=== PATIENT | male | born 1935 | race Caucasian/White ===

== ENCOUNTER 2018-07-11 05:50 | Day surgery (SDC) | payer MEDICARE, MEDICAID ==
[2018-07-04 11:10] LABS: BASOPHILS % (AUTO) 0.5 % (0-1); EOSINOPHILS # (AUTO) 0.1 X10'3 (0-0.9); EOSINOPHILS % (AUTO) 2.1 % (0-6); LYMPHOCYTES # (AUTO) 0.7 X10'3 (1.1-4.8); LYMPHOCYTES % (AUTO) 14.1 % (21-51); MEAN CORPUSCULAR HEMOGLOBIN 29.1 PG (27.0-31.0); MEAN CORPUSCULAR HGB CONC 33.3 % (33.0-36.5); MEAN CORPUSCULAR VOLUME 87.6 FL (78-98); MEAN PLATELET VOLUME 6.9 FL (7.4-10.4); MONOCYTES # (AUTO) 0.4 X10'3 (0-0.9); MONOCYTES % (AUTO) 7.9 % (2-12); NEUTROPHILS # (AUTO) 3.9 X10'3 (1.8-7.7); NEUTROPHILS % (AUTO) 75.4 % (42-75); PRE OP HEMATOCRIT 41.6 % (42.0-52.0); PRE OP HEMOGLOBIN 13.9 g/dL (14.0-17.9); PRE OP PLATELET COUNT 226 X10'3 (140-440); RED BLOOD COUNT 4.75 X10'6 (4.70-6.10); RED CELL DISTRIBUTION WIDTH 13.1 % (11.5-14.5)
[2018-07-04 11:23] LABS: ALBUMIN 3.5 G/DL (3.4-5.0); ALBUMIN/GLOBULIN RATIO 1.1 (1.1-1.5); ALKALINE PHOSPHATASE 83 IU/L (46-116); BLOOD UREA NITROGEN 26 MG/DL (7-18); BUN/CREATININE RATIO 22.4 (5.4-32.0); CALCIUM 8.9 MG/DL (8.5-10.1); CHLORIDE 107 MMOL/L (99-107); CREATININE 1.16 MG/DL (0.60-1.10); PRE OP ALT 18 U/L (30-65); PRE OP ANION GAP 8 (8-16); PRE OP AST 17 U/L (10-37); PRE OP BILIRUB, TOTAL 0.2 MG/DL (0.0-1.0); PRE OP GLUCOSE 91 MG/DL (70-104); PRE OP POTASSIUM 4.4 MMOL/L (3.4-5.1); PRE OP SODIUM 144 MMOL/L (135-145); TOTAL PROTEIN 6.8 G/DL (6.4-8.2); eGFR 60 ML/MIN
[~2018-07-11] VITALS: Ht 188 cm; Wt 91.0 kg
[~2018-07-11 05:50] MED LIST: BICA50TA7 PO; CRAN1CAP3 PO; FISH12002 PO; GLUC100017 PO; LISI40TA4 PO; MULT1TAB74 PO; VITA150T PO; cefazolin/dext.iso 2gm/100 ML IV ONE; famotidine 20mg tablet PO ONE; ringers solution, lacted 1,000 ML IV SCH
[2018-07-11] MEDS ORDERED: LIDOcaine 1% (10mg/ml) 2ml vial ONE (06:11)
[2018-07-11] MEDS ORDERED: BUPIVAcaine/PF 2.5mg/ml (0.25%) 10ml vial ONE (06:44)
[2018-07-11 07:01] VITALS: BP 170/70
[2018-07-11 07:09] VITALS: BP 170/71
[2018-07-11] MEDS ORDERED: LIDOcaine 0.5% (5mg/ml) 50ml vial ONE (07:37)
[2018-07-11] MEDS ORDERED: fentaNYL/PF 50MCG/1 ML 2ML syringe ONE (07:45)
[2018-07-11] MEDS ORDERED: midazolam 2 mg/2 ml injection ONE (07:46)
[2018-07-11] MEDS ORDERED: ringers solution, lacted 1,000 ML IV SCH (08:08)
[2018-07-11] MEDS ORDERED: meperidine/PF 25mg/ml syringe IV PRN ×3 (08:10)
[2018-07-11] MEDS ORDERED: morphine 4 MG/ML inj SYRINge IV PRN ×2 (08:10)
[2018-07-11] MEDS ORDERED: proCHLORperazine 10 MG/2 ml inj IV PRN (08:10)
[2018-07-11] MEDS ORDERED: ondansetron/PF 4mg/2ml inj IV PRN (08:10)
[2018-07-11 08:40] VITALS: BP 177/109
[2018-07-11 08:50] VITALS: BP 157/92
[2018-07-11 09:00] VITALS: BP 164/99
[2018-07-11 09:10] VITALS: BP 164/103
== END 2018-07-11 09:15 | disposition home or self-care (01) ==
LOC: PAS 05:50
PROVIDERS: ATTEND Orthopaedic Surgery Hand Surgery
DX: G56.02 Carpal tunnel syndrome, left upper limb (principal); M70.22 Olecranon bursitis, left elbow; I10 Essential (primary) hypertension; Z90.5 Acquired absence of kidney; Z79.01 Long term (current) use of anticoagulants; Z85.46 Personal history of malignant neoplasm of prostate; Z85.51 Personal history of malignant neoplasm of bladder; Z92.21 Personal history of antineoplastic chemotherapy; Z92.3 Personal history of irradiation; Z79.899 Other long term (current) drug therapy; Z98.890 Other specified postprocedural states
CPT/HCPCS: 24105; 36415; 64721; 71046; 80053; 85025; 85610; 85730; 93005; A6222; A6449; J0690; J2001; J2250; J3010; J3490; J7120

== ENCOUNTER 2018-08-08 07:59 | Day surgery (SDC) | payer MEDICARE, MEDICAID ==
[~2018-08-08] VITALS: Ht 188 cm; Wt 88.1 kg
[~2018-08-08 07:59] MED LIST changes: +ACET-2119 PO; +POTA10TA19 PO
[2018-08-08 09:18] LABS: BASOPHILS % (AUTO) 0.4 % (0-1); EOSINOPHILS # (AUTO) 0.2 X10'3 (0-0.9); EOSINOPHILS % (AUTO) 4.3 % (0-6); LYMPHOCYTES # (AUTO) 0.9 X10'3 (1.1-4.8); LYMPHOCYTES % (AUTO) 16.6 % (21-51); MEAN CORPUSCULAR HGB CONC 33.3 % (33.0-36.5); MEAN CORPUSCULAR VOLUME 87.1 FL (78-98); MEAN PLATELET VOLUME 6.7 FL (7.4-10.4); MONOCYTES # (AUTO) 0.4 X10'3 (0-0.9); MONOCYTES % (AUTO) 7.5 % (2-12); NEUTROPHILS # (AUTO) 3.8 X10'3 (1.8-7.7); NEUTROPHILS % (AUTO) 71.2 % (42-75); PRE OP HEMATOCRIT 42.3 % (42.0-52.0); PRE OP HEMOGLOBIN 14.1 g/dL (14.0-17.9); PRE OP PLATELET COUNT 224 X10'3 (140-440); RED BLOOD COUNT 4.86 X10'6 (4.70-6.10); RED CELL DISTRIBUTION WIDTH 14.5 % (11.5-14.5)
[2018-08-08] MEDS ORDERED: LIDOcaine 1% (10mg/ml) 2ml vial ONE (09:29)
[2018-08-08 09:34] LABS: ALBUMIN 3.5 G/DL (3.4-5.0); ALKALINE PHOSPHATASE 73 IU/L (46-116); BLOOD UREA NITROGEN 26 MG/DL (7-18); BUN/CREATININE RATIO 19.1 (5.4-32.0); CALCIUM 9.2 MG/DL (8.5-10.1); CHLORIDE 107 MMOL/L (99-107); CREATININE 1.36 MG/DL (0.60-1.10); PRE OP ALT 21 U/L (30-65); PRE OP ANION GAP 8 (8-16); PRE OP BILIRUB, TOTAL 0.5 MG/DL (0.0-1.0); PRE OP GLUCOSE 96 MG/DL (70-104); PRE OP SODIUM 142 MMOL/L (135-145); TOTAL CARBON DIOXIDE 27.1 MMOL/L (24-32); TOTAL PROTEIN 6.9 G/DL (6.4-8.2); eGFR 50 ML/MIN
[2018-08-08 09:35] LABS: PRE OP AST 26 U/L (10-37); PRE OP POTASSIUM 4.6 MMOL/L (3.4-5.1)
[2018-08-08] MEDS ORDERED: BUPIVAcaine/PF 2.5mg/ml (0.25%) 10ml vial ONE (09:53)
[2018-08-08] MEDS ORDERED: LIDOcaine 0.5% (5mg/ml) 50ml vial ONE (10:09)
[2018-08-08 10:29] VITALS: BP 171/93
[2018-08-08 10:32] VITALS: BP 171/93
[2018-08-08] MEDS ORDERED: fentaNYL/PF 50MCG/1 ML 2ML syringe ONE (10:34)
[2018-08-08] MEDS ORDERED: midazolam 2 mg/2 ml injection ONE (10:34)
[2018-08-08] MEDS ORDERED: ringers solution, lacted 1,000 ML IV SCH (10:53)
[2018-08-08] MEDS ORDERED: ondansetron/PF 4mg/2ml inj IV PRN (10:55)
[2018-08-08] MEDS ORDERED: proCHLORperazine 10 MG/2 ml inj IV PRN (10:55)
[2018-08-08] MEDS ORDERED: meperidine/PF 25mg/ml syringe IV PRN ×3 (10:55)
[2018-08-08] MEDS ORDERED: morphine 4 MG/ML inj SYRINge IV PRN ×2 (10:55)
[2018-08-08 11:12] VITALS: BP 167/111
[2018-08-08 11:22] VITALS: BP 151/98
[2018-08-08 11:32] VITALS: BP 153/89
[2018-08-08 11:42] VITALS: BP 148/72
== END 2018-08-08 11:42 | disposition home or self-care (01) ==
LOC: PAS 07:59
PROVIDERS: ATTEND Orthopaedic Surgery Hand Surgery
DX: G56.01 Carpal tunnel syndrome, right upper limb (principal); I10 Essential (primary) hypertension; Z85.46 Personal history of malignant neoplasm of prostate; Z98.890 Other specified postprocedural states
CPT/HCPCS: 36415; 64721; 80053; 85025; A6222; A6449; J0690; J2001; J2250; J3010; J3490; J7120